=== PATIENT | female | born 1945 | race Caucasian/White ===

== ENCOUNTER → 2018-05-30 | Outpatient (REF) | payer MEDICARE ==
[2018-05-30 22:00] LABS: APPEARANCE, URINE CLEAR (CLEAR); BACTERIA, URINE AUTO NEGATIVE (NEGATIVE); BILIRUBIN, URINE AUTO NEGATIVE (NEGATIVE); BLOOD, URINE BLOOD NEGATIVE (NEGATIVE); COLOR, URINE YELLOW (YELLOW); GLUCOSE, URINE (UA) AUTO NEGATIVE (NEGATIVE); KETONE, URINE AUTO NEGATIVE (NEGATIVE); LEUKOCYTE ESTERASE, URINE AUTO NEGATIVE (NEGATIVE); MUCUS, URINE SMALL (NEGATIVE); NITRITE, URINE AUTO NEGATIVE (NEGATIVE); PROTEIN, URINE AUTO NEGATIVE (NEGATIVE); RBC, URINE AUTO 0 /HPF (0-3); SPECIFIC GRAVITY URINE AUTO 1.014 (1.002-1.035); SQUAMOUS EPITHELIAL CELL UR AU 0 /HPF (0-6); UROBILINOGEN, URINE AUTO 0.2 mg/dL (0.0-2.0); WBC, URINE AUTO 0 /HPF (0-3)
== END ==
LOC: M LAB REF 10:00
DX: N39.0 Urinary tract infection, site not specified (principal)
CPT/HCPCS: 81001

== ENCOUNTER → 2018-06-11 | Outpatient (REF) | payer MEDICARE | LOC: M LAB REF 11:59 | DX: N76.0 Acute vaginitis (principal) | CPT/HCPCS: 87086 ==

== ENCOUNTER → 2020-08-31 | Outpatient (REF) | payer MEDICARE ==
[~2020-08-31] MED LIST: ASPI1TAB PO; ASPI81TA26 PO; ASPI81TA85 PO; BABY81CH; CALCTAB93 PO; COUM1TAB18 PO; FERR220E3 PO; GLUCTAB31 PO; MULTIVITAM PO; PERC7.5T12 PO; TYLE325T5 PO; VITAMIN C PO; VITAMIN D PO
== END ==
LOC: M LAB REF 16:29
PROVIDERS: ATTEND Physician Assistant
DX: R19.7 Diarrhea, unspecified (principal)

== ENCOUNTER → 2020-10-17 | Outpatient (CLI) | payer MEDICARE ==
--- NOTE | 2020-10-17 15:50 | DEXAMM ---
INDICATION: M81.0 AGE RELATED OSTEOPOROSIS. Patient is status post right hip replacement. COMPARISON: Comparison studies are from June 19, 2018 and October 29, 2013.. TECHNIQUE: Bone density was measured using dual-energy x-ray absorptionmetry (DEXA). FINDINGS: AP SPINE L1-L4 BMD 1.018 g/cm2 Young Adult T-Score -1.4 Age Matched Z-Score 0.4. LT FEMUR, TOTAL BMD 0.738 g/cm2 Young Adult T-Score -2.1 Age Matched Z-Score -0.3. LT NECK BMD 0.645 g/cm2 Young Adult T-Score -2.8 Age Matched Z-Score -0.8. IMPRESSION: There is low bone density of the spine. There is low bone density of the left hip. The density of the spine has increased 26.9% since the initial exam on October 29, 2013. The density of the spine increased 4.0% since most recent exam on June 19, 2018. The density of the left hip has increased 12.7% since initial exam on October 29, 2013. The density of the left hip has increased 2.6% since most recent exam on June 19, 2018. FOLLOW-UP: Recommendation for the next bone density exam: 2 years. <Electronically signed by Sidney Leavitt > 10/17/20 [id number]
== END ==
LOC: M WHC 14:14
PROVIDERS: ATTEND Internal Medicine
DX: Z13.820 Encounter for screening for osteoporosis (principal); M81.0 Age-related osteoporosis without current pathological fracture

== ENCOUNTER 2021-02-18 12:18 | Emergency (ER) | payer MEDICARE ==
[~2021-02-18] VITALS: Ht 162.6 cm; Wt 66.8 kg
--- NOTE | 2021-02-18 13:18 | REP ---
INDICATION: Coronavirus workup. COMPARISON: AP chest 07/30/2018, CT 06/09/2016. TECHNIQUE: AP portable upright FINDINGS: Of the lung marie are well inflated. CP angles are sharply defined without effusion or lateral pleural thickening. There is no dense consolidation. Underlying interstitial fibrotic changes are again seen. There is cardiomegaly with left atrial and ventricular enlargement. The aorta is calcified tortuous and ectatic as before, stable. There is no free air under the diaphragm. There are old posttraumatic changes of healed fracture of the distal left clavicle. Bones demineralized. Surgical clips in the right breast and axillary region. IMPRESSION: 1. Some cardiomegaly with left atrial and ventricular enlargement without vascular redistribution, pulmonary edema or effusion. 2. Again noted are some chronic interstitial fibrotic changes without a definite superimposed infiltrate. 3. Tortuous calcified aorta unchanged and with demineralization and degenerative changes in the spine and shoulders.. <Electronically signed by Mason Bruno > 02/18/21 [id number]
[2021-02-18 13:27] LABS: BASO % 0.6 % (0.0-1.0); EOS % 0.6 % (0.0-3.0); HEMATOCRIT 37.4 % (36.0-47.0); HEMOGLOBIN 12.7 g/dl (12.0-15.5); LYMPH % 29.7 % (24.0-44.0); MEAN CORPUSCULAR HEMOGLOBIN 32.4 pg (27.0-33.0); MEAN CORPUSCULAR VOLUME 95.4 fl (80.0-96.0); MONO # 0.3 10^3/uL (0.0-0.8); MONO % 9.6 % (2.0-8.0); NEUTROPHILS % 59.2 % (36.0-66.0); PLATELET COUNT, AUTOMATED 240 10^3/uL (150-450); RED BLOOD COUNT 3.92 10^6/uL (4.00-5.40); WHITE BLOOD COUNT 3.4 10^3/uL (4.0-10.0)
[2021-02-18 14:13] LABS: ALBUMIN 3.3 GM/DL (3.2-5.2); ALT/SGPT 72 U/L (12-78); BILIRUBIN,TOTAL 0.2 MG/DL (0.2-1.0); BLOOD UREA NITROGEN 14 MG/DL (7-18); C REACTIVE PROTEIN QUANTITATIV 1.66 MG/DL (0.00-0.30); CALCIUM LEVEL 8.2 MG/DL (8.8-10.2); CARBON DIOXIDE LEVEL 27 MEQ/L (21-32); CHLORIDE LEVEL 107 MEQ/L (98-107); CK-MB VALUE MASS 2.7 NG/ML (<3.6); CPK CREATINE PHOSPHOKINASE 158 U/L (26-192); CREATININE FOR GFR 0.58 MG/DL (0.55-1.30); ETHYL ALCOHOL (ETHANOL) < 0.003 % (0.000-0.010); FERRITIN 136 NG/ML (8-252); GLOMERULAR FILTRATION RATE > 60.0 (>39); GLUCOSE, FASTING 92 MG/DL (70-100); LDH LACTATE DEHYDROGENASE 248 U/L (84-246); MB/CK RELATIVE INDEX 1.71 (< OR =4); POTASSIUM SERUM 4.1 MEQ/L (3.5-5.1); SODIUM LEVEL 139 MEQ/L (136-145); TOTAL PROTEIN 6.4 GM/DL (6.4-8.2); TROPONIN I < 0.02 NG/ML (< 0.10)
[2021-02-18] MEDS ORDERED: EPINEPHrine INJ 1 MG/ML 1ML AMP IM PRN (15:05)
[2021-02-18] MEDS ORDERED: diphenhydrAMINE 50MG/ML VIAL (J1200) IV PRN (15:05)
[2021-02-18] MEDS ORDERED: methylPREDNISolone 125MG 2ML VIAL IV PRN (15:05)
[2021-02-18] MEDS ORDERED: NS 1,000 ML IV SCH (15:05)
[2021-02-18] MEDS ORDERED: ALBUTEROL 90 MCG/ACT 8GM HFA INHALER INH PRN (15:05)
[2021-02-18] MEDS ORDERED: CASIRIVIMAB (REGN10933) 600 MG, IMDEVIMAB (REGN10987) 600 MG in NS 250 ML IV ONE (15:05)
[2021-02-18] MEDS ORDERED: ALBUTEROL SULFATE 2.5 MG/0.5 ML INH NEB SOLN INH PRN (15:05)
--- NOTE | 2021-02-18 15:05 | IPNPDOC ---
Text Note Date of Service The patient was seen on 02/18/21. NOTE Patient was seen in the emergency room.. Patient is 75 years old female with past medical history of atrial fibrillation, history of EtOH abuse, anxiety presented to hospital after a positive Covid test. Patient denied any fever, chills, cough. Physical exam pertinent for diminished lung sounds. Patient signed consent for monoclonal antibody infusion. Of note patient was vaccinated against Covid previously. VS,Fishbone, I+O VS, Fishbone, I+O Laboratory Tests 02/18/21 13:17 Vital Signs Date Time Temp Pulse Resp B/P (MAP) Pulse Ox O2 Delivery O2 Flow Rate FiO2 02/18/21 14:15 73 18 146/83 (104) 98 Room Air 02/18/21 13:37 98.2 CONNOR LOPEZ DO Feb 18, 2021 15:05
[2021-02-18 16:16] VITALS: BP 180/87
--- NOTE | 2021-02-18 22:14 | ECGEPIP ---
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
== END 2021-02-18 16:39 | disposition home or self-care (01) ==
LOC: M ED 12:18
DX: U07.1 COVID-19 (principal); I51.7 Cardiomegaly; I48.91 Unspecified atrial fibrillation; F10.11 Alcohol abuse, in remission; F41.9 Anxiety disorder, unspecified; Z79.899 Other long term (current) drug therapy

== ENCOUNTER 2021-02-18 15:01 | Outpatient (CLI) | payer MEDICARE ==
[2021-02-18] VITALS (11 sets, daily range): BP systolic 15–166; BP diastolic 69–89
[~2021-02-18] VITALS: Ht 162.6 cm; Wt 66.8 kg
[~2021-02-18 15:01] MED LIST changes: +ALBUTEROL 90 MCG/ACT 8GM HFA INHALER INH PRN; +ALBUTEROL SULFATE 2.5 MG/0.5 ML INH NEB SOLN INH PRN; +EPINEPHrine INJ 1 MG/ML 1ML AMP IM PRN; +NS 1,000 ML IV SCH; +diphenhydrAMINE 50MG/ML VIAL (J1200) IV PRN; +methylPREDNISolone 125MG 2ML VIAL IV PRN
[2021-02-18] MEDS ORDERED: CASIRIVIMAB (REGN10933) 600 MG, IMDEVIMAB (REGN10987) 600 MG in NS 250 ML IV ONE (18:00)
== END 2021-02-18 18:45 | disposition home or self-care (01) ==
LOC: M OPCLIICU 15:01 → M ICU 16:55 → M OPCLIICU 18:45
PROVIDERS: ATTEND Internal Medicine
DX: U07.1 COVID-19 (principal)

== ENCOUNTER 2021-09-20 11:17 | Inpatient (IN) | payer MEDICARE ==
[~2021-09-20] VITALS: Ht 167.6 cm; Wt 67.7 kg
[~2021-09-20 11:17] MED LIST changes: -ALBUTEROL 90 MCG/ACT 8GM HFA INHALER INH PRN; -ALBUTEROL SULFATE 2.5 MG/0.5 ML INH NEB SOLN INH PRN; -EPINEPHrine INJ 1 MG/ML 1ML AMP IM PRN; -NS 1,000 ML IV SCH; -diphenhydrAMINE 50MG/ML VIAL (J1200) IV PRN; -methylPREDNISolone 125MG 2ML VIAL IV PRN
[2021-09-20 12:19] LABS: BASO # 0.1 10^3/uL (0.0-0.2); BASO % 0.6 % (0.0-1.0); EOS % 0.5 % (0.0-3.0); HEMATOCRIT 38.4 % (36.0-47.0); HEMOGLOBIN 12.7 g/dl (12.0-15.5); LYMPH # 0.9 10^3/uL (1.5-5.0); LYMPH % 11.4 % (24.0-44.0); MEAN CORPUSCULAR HEMOGLOBIN 31.3 pg (27.0-33.0); MEAN CORPUSCULAR HGB CONC 33.1 g/dl (32.0-36.5); MEAN CORPUSCULAR VOLUME 94.6 fl (80.0-96.0); MONO # 0.5 10^3/uL (0.0-0.8); MONO % 6.9 % (2.0-8.0); NEUTROPHILS # 6.2 10^3/uL (1.5-8.5); NEUTROPHILS % 80.2 % (36.0-66.0); PLATELET COUNT, AUTOMATED 372 10^3/uL (150-450); RED BLOOD COUNT 4.06 10^6/uL (4.00-5.40); WHITE BLOOD COUNT 7.7 10^3/uL (4.0-10.0)
[2021-09-20 12:50] LABS: CK-MB VALUE MASS 3.9 NG/ML (<3.6); MB/CK RELATIVE INDEX 4.11 (< OR =4)
[2021-09-20 13:01] LABS: ALBUMIN 3.1 GM/DL (3.2-5.2); ALT/SGPT 29 U/L (12-78); BILIRUBIN,DIRECT < 0.1 MG/DL (0.0-0.2); BILIRUBIN,TOTAL 0.3 MG/DL (0.2-1.0); BLOOD UREA NITROGEN 18 MG/DL (7-18); CARBON DIOXIDE LEVEL 25 MEQ/L (21-32); CHLORIDE LEVEL 111 MEQ/L (98-107); CREATININE FOR GFR 0.65 MG/DL (0.55-1.30); FREE T4 0.97 NG/DL (0.76-1.46); GLOMERULAR FILTRATION RATE > 60.0 (>39); GLUCOSE, FASTING 104 MG/DL (70-100); LIPASE 154 U/L (73-393); SODIUM LEVEL 143 MEQ/L (136-145); THYROID STIMULATING HORMONE 0.739 uIU/ML (0.358-3.740); TOTAL PROTEIN 6.3 GM/DL (6.4-8.2)
[2021-09-20] MEDS ORDERED: JOINCAP2 PO (15:04)
[2021-09-20] MEDS ORDERED: ALEN70TA82 PO (15:04)
[2021-09-20] MEDS ORDERED: ASPI81TA26 PO (15:04)
[2021-09-20] MEDS ORDERED: C 50TAB PO (15:04)
[2021-09-20] MEDS ORDERED: BLAC1CAP2 PO (15:04)
[2021-09-20] MEDS ORDERED: CVS-161 PO (15:04)
[2021-09-20] MEDS ORDERED: ECHI500C PO (15:04)
[2021-09-20] MEDS ORDERED: VITA-172 PO (15:04)
[2021-09-20] MEDS ORDERED: VITA100093 PO (15:04)
[2021-09-20] MEDS ORDERED: ZINC1TAB2 PO (15:04)
[2021-09-20] MEDS ORDERED: HOME MED LIST COMPLETE! XX SCH (15:05)
[2021-09-20] MEDS ORDERED: ACETAMINOPHEN TAB 650MG DOSE (2X325MG) PO PRN (15:30)
[2021-09-20] MEDS ORDERED: MOM 30ML SUSPENSION UDC PO PRN (15:30)
[2021-09-20] MEDS ORDERED: MAALOX 30 ML SUSP *UDC PO PRN (15:30)
[2021-09-20 16:21] LABS: RSV AMPLIFICATION NEGATIVE (NEGATIVE)
[2021-09-20 17:57] LABS: CK-MB VALUE MASS 5.2 NG/ML (<3.6); MB/CK RELATIVE INDEX 6.42 (< OR =4)
[2021-09-20 18:00] VITALS: BP 120/62
[2021-09-20] MEDS ORDERED: LORazepam 2 MG TAB PO PRN (18:40)
[2021-09-20 20:00] VITALS: BP 110/56
[2021-09-20] MEDS: METOPROLOL TART 50 MG TAB PO SCH (21:13)
[2021-09-20] MEDS: THIAMINE 100 MG TAB PO SCH (21:13)
[2021-09-20 23:07] LABS: MB/CK RELATIVE INDEX 5.33 (< OR =4)
[2021-09-21] VITALS: BP 114/57
[2021-09-21 04:00] VITALS: BP 131/64
[2021-09-21 08:00] VITALS: BP 138/74
[2021-09-21] MEDS ORDERED: FOLIC ACID 1 MG TAB PO SCH (09:00)
[2021-09-21] MEDS ORDERED: ASPIRIN 81MG ENTERIC TABLET PO SCH (09:00)
[2021-09-21] MEDS ORDERED: MULTIVITAMINS/MINERALS THERAP 1 TAB PO SCH (09:00)
[2021-09-21 09:08] LABS: BASO # 0.1 10^3/uL (0.0-0.2); BASO % 0.9 % (0.0-1.0); EOS # 0.2 10^3/uL (0.0-0.5); EOS % 2.8 % (0.0-3.0); HEMATOCRIT 36.2 % (36.0-47.0); HEMOGLOBIN 11.8 g/dl (12.0-15.5); LYMPH # 1.2 10^3/uL (1.5-5.0); LYMPH % 21.3 % (24.0-44.0); MEAN CORPUSCULAR HEMOGLOBIN 31.7 pg (27.0-33.0); MEAN CORPUSCULAR HGB CONC 32.6 g/dl (32.0-36.5); MEAN CORPUSCULAR VOLUME 97.3 fl (80.0-96.0); MONO # 0.5 10^3/uL (0.0-0.8); MONO % 8.1 % (2.0-8.0); NEUTROPHILS # 3.9 10^3/uL (1.5-8.5); NEUTROPHILS % 66.6 % (36.0-66.0); PLATELET COUNT, AUTOMATED 324 10^3/uL (150-450); RED BLOOD COUNT 3.72 10^6/uL (4.00-5.40); WHITE BLOOD COUNT 5.8 10^3/uL (4.0-10.0)
[2021-09-21 09:22] VITALS: BP 138/74
[2021-09-21] MEDS: METOPROLOL TART 50 MG TAB PO SCH (09:22)
[2021-09-21] MEDS: ENOXAPARIN 40MG/0.4ML SYRINGE (J1650 PER 10MG) SC SCH ×2 (09:23→09:25)
[2021-09-21] MEDS: THIAMINE 100 MG TAB PO SCH (09:23)
[2021-09-21 09:36] LABS: ALBUMIN 2.9 GM/DL (3.2-5.2); ALT/SGPT 24 U/L (12-78); BILIRUBIN,TOTAL 0.4 MG/DL (0.2-1.0); BLOOD UREA NITROGEN 23 MG/DL (7-18); CALCIUM LEVEL 8.3 MG/DL (8.8-10.2); CARBON DIOXIDE LEVEL 26 MEQ/L (21-32); CHLORIDE LEVEL 110 MEQ/L (98-107); CHOLESTEROL LEVEL 213 MG/DL (<200); CHOLESTEROL RISK RATIO 2.597 (<5); GLOMERULAR FILTRATION RATE > 60.0 (>39); GLUCOSE, FASTING 91 MG/DL (70-100); HDL CHOLESTEROL 82 MG/DL (>40); LDL CHOLESTEROL 110 MG/DL (<100); MAGNESIUM LEVEL 1.8 MG/DL (1.8-2.4); NON-HDL-C 131 MG/DL; POTASSIUM SERUM 4.1 MEQ/L (3.5-5.1); SODIUM LEVEL 142 MEQ/L (136-145); TOTAL PROTEIN 5.8 GM/DL (6.4-8.2); TRIGLYCERIDES LEVEL 105 MG/DL (<150)
[2021-09-21 09:37] LABS: CK-MB VALUE MASS 2.6 NG/ML (<3.6)
[2021-09-21 10:00] LABS: HEMOGLOBIN A1c 5.3 %
[2021-09-21 11:17] LABS: CK-MB VALUE MASS 2.4 NG/ML (<3.6); MB/CK RELATIVE INDEX 3.38 (< OR =4)
[2021-09-21] MEDS ORDERED: LOPR1TAB6 PO (11:57)
[2021-09-21] MEDS ORDERED: ASPI81TA26 PO (11:57)
== END 2021-09-21 14:06 | disposition home or self-care (01) | DRG 309 ==
LOC: M ED 11:17 → ENRESERV 17:33 → M PCU 17:53
PROVIDERS: ADMIT Family Medicine; ATTEND Family Medicine
DX: I48.92 Unspecified atrial flutter (principal); I24.8 Other forms of acute ischemic heart disease; F10.10 Alcohol abuse, uncomplicated; I48.0 Paroxysmal atrial fibrillation; Z86.73 Personal history of transient ischemic attack (TIA), and cerebral infarction without residual deficits; Z85.3 Personal history of malignant neoplasm of breast; Z98.41 Cataract extraction status, right eye; Z98.42 Cataract extraction status, left eye; H81.10 Benign paroxysmal vertigo, unspecified ear; R29.6 Repeated falls; R26.89 Other abnormalities of gait and mobility; Z79.82 Long term (current) use of aspirin; Z79.899 Other long term (current) drug therapy; Z88.1 Allergy status to other antibiotic agents; Z91.041 Radiographic dye allergy status

== ENCOUNTER 2021-10-16 12:48 | Emergency (ER) | payer MEDICARE ==
[~2021-10-16] VITALS: Ht 167.6 cm; Wt 66.8 kg
[~2021-10-16 12:48] MED LIST changes: +ALEN70TA82 PO; +BLAC1CAP2 PO; +C 50TAB PO; +CVS-161 PO; +ECHI500C PO; +JOINCAP2 PO; +LOPR1TAB6 PO; +VITA-172 PO; +VITA100093 PO; +ZINC1TAB2 PO
[2021-10-16 15:13] LABS: BASO % 0.7 % (0.0-1.0); EOS # 0.1 10^3/uL (0.0-0.5); EOS % 1.2 % (0.0-3.0); HEMATOCRIT 37.9 % (36.0-47.0); HEMOGLOBIN 12.5 g/dl (12.0-15.5); LYMPH # 1.5 10^3/uL (1.5-5.0); LYMPH % 24.3 % (24.0-44.0); MEAN CORPUSCULAR HEMOGLOBIN 30.9 pg (27.0-33.0); MEAN CORPUSCULAR VOLUME 93.8 fl (80.0-96.0); MONO # 0.4 10^3/uL (0.0-0.8); MONO % 6.1 % (2.0-8.0); NEUTROPHILS # 4.1 10^3/uL (1.5-8.5); NEUTROPHILS % 67.4 % (36.0-66.0); PLATELET COUNT, AUTOMATED 335 10^3/uL (150-450); RED BLOOD COUNT 4.04 10^6/uL (4.00-5.40); WHITE BLOOD COUNT 6.1 10^3/uL (4.0-10.0)
[2021-10-16 15:47] LABS: ALBUMIN 3.6 GM/DL (3.2-5.2); ALT/SGPT 28 U/L (12-78); BILIRUBIN,TOTAL 0.3 MG/DL (0.2-1.0); BLOOD UREA NITROGEN 16 MG/DL (7-18); C REACTIVE PROTEIN QUANTITATIV 0.35 MG/DL (0.00-0.30); CALCIUM LEVEL 9.1 MG/DL (8.8-10.2); CARBON DIOXIDE LEVEL 30 MEQ/L (21-32); CHLORIDE LEVEL 108 MEQ/L (98-107); CREATININE FOR GFR 0.65 MG/DL (0.55-1.30); GLOMERULAR FILTRATION RATE > 60.0 (>39); GLUCOSE, FASTING 84 MG/DL (70-100); POTASSIUM SERUM 4.1 MEQ/L (3.5-5.1); SODIUM LEVEL 142 MEQ/L (136-145); TOTAL PROTEIN 7.1 GM/DL (6.4-8.2)
[2021-10-16 16:00] VITALS: BP 160/84
[2021-10-16 16:04] LABS: ERYTHROCYTE SEDIMENTATION RATE 28 mm/hr (0-30)
== END 2021-10-16 16:00 | disposition left against medical advice (07) ==
LOC: M ED 12:48
DX: M79.662 Pain in left lower leg (principal); R53.83 Other fatigue; I48.91 Unspecified atrial fibrillation; Z85.3 Personal history of malignant neoplasm of breast; Z88.1 Allergy status to other antibiotic agents; Z91.041 Radiographic dye allergy status; Z79.899 Other long term (current) drug therapy; Z79.82 Long term (current) use of aspirin

== ENCOUNTER → 2022-02-06 | Outpatient (REF) | payer MEDICARE ==
[2022-02-06 18:40] LABS: FERRITIN 43 NG/ML (8-252)
[2022-02-06 19:07] LABS: VITAMIN B12 LEVEL 736 PG/ML (247-911)
== END ==
LOC: M LAB REF 16:40
PROVIDERS: ATTEND Internal Medicine
DX: R42 Dizziness and giddiness (principal)

== ENCOUNTER → 2022-06-14 | Outpatient (REF) | payer MEDICARE | LOC: M LAB REF 11:14 | PROVIDERS: ATTEND Internal Medicine | DX: R19.7 Diarrhea, unspecified (principal) ==

== ENCOUNTER → 2022-06-25 | Outpatient (CLI) | payer MEDICARE | LOC: M RAD 17:20 | PROVIDERS: ATTEND Physician Assistant Medical | DX: S32.020A Wedge compression fracture of second lumbar vertebra, initial encounter for closed fracture (principal); S32.040A Wedge compression fracture of fourth lumbar vertebra, initial encounter for closed fracture; Z91.81 History of falling; I70.0 Atherosclerosis of aorta ==

== ENCOUNTER → 2022-06-25 | Outpatient (REF) | payer MEDICARE ==
[2022-06-25 18:35] LABS: APPEARANCE, URINE MANUAL CLEAR (CLEAR); BILIRUBIN, URINE MANUAL NEGATIVE (NEGATIVE); BLOOD URINE MANUAL TRACE (NEGATIVE); COLOR, URINE MANUAL YELLOW (YELLOW); GLUCOSE, URINE (UA) MANUAL NEGATIVE (NEGATIVE); KETONE, URINE MANUAL NEGATIVE (NEGATIVE); LEUKOCYTE ESTERASE, URINE MAN TRACE (NEGATIVE); NITRITE, URINE MANUAL NEGATIVE (NEGATIVE); PROTEIN, URINE MANUAL NEGATIVE (NEGATIVE); UROBILINOGEN, URINE MANUAL NORMAL (NORMAL)
[2022-06-25 19:46] LABS: AMORPHOUS SEDIMENT, URINE MOD AMOUNT (NEGATIVE); MUCUS, URINE LARGE AMOUNT (NEGATIVE); RBC, URINE 0-1 /hpf (0-3)
[2022-06-25 19:47] LABS: BACTERIA, URINE NONE SEEN; HYALINE CAST, URINE NONE SEEN /lpf (0-1); SQUAMOUS EPITHELIAL CELL URINE MOD AMOUNT /hpf (SMALL AMT)
== END ==
LOC: M LAB REF 16:29
PROVIDERS: ATTEND Physician Assistant Medical
DX: N39.0 Urinary tract infection, site not specified (principal)

== ENCOUNTER → 2022-06-29 | Outpatient (REF) | payer MEDICARE ==
[2022-06-29 20:29] LABS: APPEARANCE, URINE MANUAL CLEAR (CLEAR); BILIRUBIN, URINE MANUAL NEGATIVE (NEGATIVE); COLOR, URINE MANUAL YELLOW (YELLOW); GLUCOSE, URINE (UA) MANUAL NEGATIVE (NEGATIVE); KETONE, URINE MANUAL NEGATIVE (NEGATIVE); PROTEIN, URINE MANUAL NEGATIVE (NEGATIVE); SPECIFIC GRAVITY,URINE MANUAL 1.025 (1.002-1.035); UROBILINOGEN, URINE MANUAL NORMAL (NORMAL)
[2022-06-29 20:30] LABS: LEUKOCYTE ESTERASE, URINE MAN NEGATIVE (NEGATIVE); NITRITE, URINE MANUAL NEGATIVE (NEGATIVE)
[2022-06-29 20:31] LABS: BLOOD URINE MANUAL NEGATIVE (NEGATIVE)
== END ==
LOC: M LAB REF 19:43
PROVIDERS: ATTEND Physician Assistant Medical
DX: N39.0 Urinary tract infection, site not specified (principal)

== ENCOUNTER → 2022-09-11 | Outpatient (REF) | payer MEDICARE | LOC: M SFHCDERM 17:20 | PROVIDERS: ATTEND Physician Assistant | DX: L82.0 Inflamed seborrheic keratosis (principal) ==

== ENCOUNTER → 2022-10-15 | Outpatient (REF) | payer MEDICARE | LOC: M LAB REF 10:36 | PROVIDERS: ATTEND Internal Medicine | DX: R19.7 Diarrhea, unspecified (principal) ==

== ENCOUNTER → 2023-01-01 | Outpatient (CLI) | payer MEDICARE | LOC: M PLAIMG 14:01 | PROVIDERS: ATTEND Physician Assistant Surgical | DX: S30.0XXA Contusion of lower back and pelvis, initial encounter (principal); M51.26 Other intervertebral disc displacement, lumbar region; S32.020D Wedge compression fracture of second lumbar vertebra, subsequent encounter for fracture with routine healing; S32.040D Wedge compression fracture of fourth lumbar vertebra, subsequent encounter for fracture with routine healing; X58.XXXA Exposure to other specified factors, initial encounter; Y92.9 Unspecified place or not applicable; Y93.9 Activity, unspecified; Y99.9 Unspecified external cause status; M85.88 Other specified disorders of bone density and structure, other site; M48.061 Spinal stenosis, lumbar region without neurogenic claudication ==

== ENCOUNTER → 2023-01-21 | Outpatient (CLI) | payer MEDICARE ==
[~2023-01-21] MED LIST changes: +GASTROGRAFIN SOLUTION 30ML As Ordered ONE; +ISOVUE-370 76% 100ML VIAL As Ordered ONE
== END ==
LOC: M RAD 14:19
PROVIDERS: ATTEND Internal Medicine Gastroenterology
DX: R63.4 Abnormal weight loss (principal)
CPT/HCPCS: 74177; Q9963; Q9967

== ENCOUNTER → 2023-02-06 | Outpatient (CLI) | payer MEDICARE ==
[~2023-02-06] MED LIST changes: -GASTROGRAFIN SOLUTION 30ML As Ordered ONE; -ISOVUE-370 76% 100ML VIAL As Ordered ONE
== END ==
LOC: M WHC 14:28
PROVIDERS: ATTEND Internal Medicine
DX: M81.0 Age-related osteoporosis without current pathological fracture (principal)

== ENCOUNTER 2023-03-05 11:29 | Day surgery (SDC) | payer MEDICARE ==
[~2023-03-05] VITALS: Ht 162.6 cm; Wt 58.2 kg
[~2023-03-05 11:29] MED LIST changes: +NS 1,000 ML IV ONE
[2023-03-05] MEDS ORDERED: propofoL 200 MG/20 ML VIAL As Ordered ONE ×2 (11:39→11:40)
[2023-03-05] MEDS ORDERED: LIDOCAINE 2% 100MG/5ML SDV (FOR ANES.) As Ordered ONE (11:40)
[2023-03-05 14:04] VITALS: BP 126/72; O2SAT 97
== END 2023-03-05 14:05 | disposition home or self-care (01) ==
LOC: M OPP 11:29
PROVIDERS: ATTEND Internal Medicine Gastroenterology
DX: K64.0 First degree hemorrhoids (principal); R19.7 Diarrhea, unspecified; Z79.1 Long term (current) use of non-steroidal anti-inflammatories (NSAID); Z79.82 Long term (current) use of aspirin; Z79.899 Other long term (current) drug therapy; Z88.1 Allergy status to other antibiotic agents; Z91.041 Radiographic dye allergy status

== ENCOUNTER → 2023-04-12 | Outpatient (REF) | payer MEDICARE ==
[~2023-04-12] MED LIST changes: -NS 1,000 ML IV ONE
== END ==
LOC: M LAB REF 15:10
PROVIDERS: ATTEND Internal Medicine Gastroenterology
DX: R19.7 Diarrhea, unspecified (principal); K52.832 Lymphocytic colitis

== ENCOUNTER → 2023-09-01 | Outpatient (REF) | payer MEDICARE | LOC: M LAB REF 16:14 | PROVIDERS: ATTEND Physician Assistant Medical | DX: B34.9 Viral infection, unspecified (principal) ==

== ENCOUNTER 2023-09-04 14:00 | Emergency (ER) | payer MEDICARE ==
[~2023-09-04] VITALS: Ht 167.6 cm; Wt 62.7 kg
[2023-09-04 16:06] VITALS: BP 169/81; TEMP 98.6; O2SAT 100
== END 2023-09-04 16:09 | disposition home or self-care (01) ==
LOC: M ED 14:00
DX: S09.90XA Unspecified injury of head, initial encounter (principal); W19.XXXA Unspecified fall, initial encounter; Y92.9 Unspecified place or not applicable; Y93.89 Activity, other specified; Y99.0 Civilian activity done for income or pay; I48.91 Unspecified atrial fibrillation; Z85.3 Personal history of malignant neoplasm of breast; Z79.899 Other long term (current) drug therapy; Z88.8 Allergy status to other drugs, medicaments and biological substances; Z91.041 Radiographic dye allergy status

== ENCOUNTER → 2024-07-26 | Outpatient (REF) | payer MEDICARE ==
[2024-07-26 18:21] LABS: APPEARANCE, URINE HAZY (CLEAR); BACTERIA, URINE AUTO 1+ (NEGATIVE); BILIRUBIN, URINE AUTO NEGATIVE (NEGATIVE); BLOOD, URINE BLOOD NEGATIVE (NEGATIVE); COLOR, URINE YELLOW (YELLOW); GLUCOSE, URINE (UA) AUTO NEGATIVE (NEGATIVE); KETONE, URINE AUTO TRACE mg/dL (NEGATIVE); LEUKOCYTE ESTERASE, URINE AUTO NEGATIVE (NEGATIVE); MUCUS, URINE SMALL (NEGATIVE); NITRITE, URINE AUTO NEGATIVE (NEGATIVE); PROTEIN, URINE AUTO 1+ mg/dL (NEGATIVE); RBC, URINE AUTO 2 /HPF (0-3); SPECIFIC GRAVITY URINE AUTO 1.028 (1.002-1.035); SQUAMOUS EPITHELIAL CELL UR AU 1 /HPF (0-6); UROBILINOGEN, URINE AUTO 0.2 mg/dL (0.0-2.0); WBC, URINE AUTO 2 /HPF (0-3)
== END ==
LOC: M LAB REF 17:40
PROVIDERS: ATTEND Physician Assistant Medical
DX: N39.0 Urinary tract infection, site not specified (principal); B34.9 Viral infection, unspecified

== ENCOUNTER → 2024-10-27 | Outpatient (REF) | payer MEDICARE ==
[2024-10-27 16:43] LABS: FOLATE 17.2 NG/ML (>5.4)
[2024-10-27 16:52] LABS: VITAMIN B12 LEVEL > 2000 PG/ML (211-911)
== END ==
LOC: M LAB REF 15:12
PROVIDERS: ATTEND Internal Medicine
DX: G43.109 Migraine with aura, not intractable, without status migrainosus (principal); H40.013 Open angle with borderline findings, low risk, bilateral

== ENCOUNTER 2024-12-08 14:42 | Emergency (ER) | payer MEDICARE ==
[~2024-12-08] VITALS: Ht 165.1 cm; Wt 63.6 kg
[2024-12-08 18:57] LABS: BASO # 0.1 10^3/uL (0.0-0.2); BASO % 0.8 % (0.0-1.0); EOS # 0.1 10^3/uL (0.0-0.5); EOS % 1.4 % (0.0-3.0); HEMATOCRIT 40.4 % (36.0-47.0); HEMOGLOBIN 13.5 g/dl (12.0-15.5); LYMPH # 1.7 10^3/uL (1.5-5.0); LYMPH % 27.2 % (24.0-44.0); MEAN CORPUSCULAR HEMOGLOBIN 31.8 pg (27.0-33.0); MEAN CORPUSCULAR HGB CONC 33.4 g/dl (32.0-36.5); MEAN CORPUSCULAR VOLUME 95.1 fl (80.0-96.0); MONO # 0.4 10^3/uL (0.0-0.8); MONO % 5.7 % (2.0-8.0); NEUTROPHILS # 4.1 10^3/uL (1.5-8.5); NEUTROPHILS % 64.7 % (36.0-66.0); PLATELET COUNT, AUTOMATED 306 10^3/uL (150-450); RED BLOOD COUNT 4.25 10^6/uL (4.00-5.40); WHITE BLOOD COUNT 6.4 10^3/uL (4.0-10.0)
[2024-12-08] MEDS ORDERED: CETI10TA4 PO (19:29)
[2024-12-08] MEDS ORDERED: AZIT-12 PO (19:29)
[2024-12-08 20:03] VITALS: BP 130/62; TEMP 97.5; O2SAT 97
== END 2024-12-08 20:06 | disposition home or self-care (01) ==
LOC: M ED 14:42
DX: H66.92 Otitis media, unspecified, left ear (principal); B34.9 Viral infection, unspecified; R94.31 Abnormal electrocardiogram [ECG] [EKG]; Z88.1 Allergy status to other antibiotic agents; Z91.041 Radiographic dye allergy status; Z79.1 Long term (current) use of non-steroidal anti-inflammatories (NSAID); Z79.2 Long term (current) use of antibiotics; Z79.899 Other long term (current) drug therapy; Z79.810 Long term (current) use of selective estrogen receptor modulators (SERMs)

== ENCOUNTER → 2025-03-01 | Outpatient (REF) | payer MEDICARE ==
[~2025-03-01] MED LIST changes: +AZIT-12 PO; +CETI10TA4 PO
[2025-03-01 21:48] LABS: APPEARANCE, URINE CLEAR (CLEAR); BACTERIA, URINE AUTO NEGATIVE (NEGATIVE); BILIRUBIN, URINE AUTO NEGATIVE (NEGATIVE); BLOOD, URINE BLOOD NEGATIVE (NEGATIVE); GLUCOSE, URINE (UA) AUTO NEGATIVE (NEGATIVE); KETONE, URINE AUTO TRACE mg/dL (NEGATIVE); LEUKOCYTE ESTERASE, URINE AUTO TRACE (NEGATIVE); NITRITE, URINE AUTO NEGATIVE (NEGATIVE); PROTEIN, URINE AUTO NEGATIVE (NEGATIVE); RBC, URINE AUTO 1 /HPF (0-3); SPECIFIC GRAVITY URINE AUTO 1.018 (1.002-1.035); SQUAMOUS EPITHELIAL CELL UR AU 1 /HPF (0-6); UROBILINOGEN, URINE AUTO 0.2 mg/dL (0.0-2.0); WBC, URINE AUTO 14 /HPF (0-3)
== END ==
LOC: M LAB REF 21:16
PROVIDERS: ATTEND Physician Assistant
DX: N39.0 Urinary tract infection, site not specified (principal)

== ENCOUNTER → 2025-04-17 | Outpatient (CLI) | payer MEDICARE ==
[2025-04-17 15:54] LABS: ALT/SGPT 47.0 U/L (7.0-40); AST/SGOT 39.0 U/L (<34); CALCIUM LEVEL 8.5 MG/DL (8.3-10.6); CARBON DIOXIDE LEVEL 29.0 MMOL/L (20-31); CHLORIDE LEVEL 106.0 MMOL/L (98-107); CREATININE FOR GFR 0.7 MG/DL (0.55-1.30); GLOMERULAR FILTRATION RATE 86.8 (>32); POTASSIUM SERUM 3.9 MMOL/L (3.5-5.1); SODIUM LEVEL 140.0 MMOL/L (136-145)
== END ==
LOC: M LAB 15:00
DX: E16.2 Hypoglycemia, unspecified (principal)

== ENCOUNTER 2025-07-14 15:53 | Emergency (ER) | payer MEDICARE ==
[~2025-07-14] VITALS: Ht 167.6 cm; Wt 71.6 kg
[2025-07-14 16:13] VITALS: TEMP 98
[2025-07-14] MEDS: PERCOCET 5MG/325MG TAB PO ONE ×2 (16:25→18:59)
[2025-07-14 18:30] VITALS: BP 161/71
[2025-07-14] MEDS ORDERED: PERC5TAB12 PO (18:52)
[2025-07-14 18:59] VITALS: O2SAT 99
== END 2025-07-14 19:16 | disposition home or self-care (01) ==
LOC: M ED 15:53 → EDBD 15:53 → M ED 19:16
DX: S20.224A Contusion of middle back wall of thorax, initial encounter (principal); S30.0XXA Contusion of lower back and pelvis, initial encounter; Y92.019 Unspecified place in single-family (private) house as the place of occurrence of the external cause; Y93.9 Activity, unspecified; Y99.9 Unspecified external cause status; W17.89XA Other fall from one level to another, initial encounter; C50.919 Malignant neoplasm of unspecified site of unspecified female breast; F41.9 Anxiety disorder, unspecified; Z88.8 Allergy status to other drugs, medicaments and biological substances; Z91.041 Radiographic dye allergy status; Z79.1 Long term (current) use of non-steroidal anti-inflammatories (NSAID); Z79.2 Long term (current) use of antibiotics; Z79.899 Other long term (current) drug therapy; Z79.810 Long term (current) use of selective estrogen receptor modulators (SERMs)